=== PATIENT | male | born 1995 | race American Indian/Alaskan Native ===

== ENCOUNTER 2019-08-31 11:49 | Emergency (ER) | payer SELFPAY ==
[2019-08-31 12:01] VITALS: BP 111/67
== END 2019-08-31 17:00 | disposition left against medical advice (07) ==
LOC: ED 11:49
DX: H57.89 Other specified disorders of eye and adnexa (principal); Z53.21 Procedure and treatment not carried out due to patient leaving prior to being seen by health care provider